=== PATIENT | female | born 1995 | race Caucasian/White ===

== ENCOUNTER 2024-03-23 22:08 | Emergency (ER) | payer SELFPAY ==
[~2024-03-23] VITALS: Ht 170.2 cm; Wt 61.4 kg
[2024-03-23] MEDS ORDERED: Amoxicillin/Clavulanate K+ 875/125 MG TAB PO ONE (23:45)
[2024-03-23] MEDS ORDERED: AMOXICILLIN 8751 TAB PO (23:57)
[2024-03-24 00:31] VITALS: BP 123/81; PULSE 83; TEMP 98.1
== END 2024-03-24 00:31 | disposition home or self-care (01) ==
LOC: COL.ER 22:08
DX: S71.152A Open bite, left thigh, initial encounter (principal); W64.XXXA Exposure to other animate mechanical forces, initial encounter